=== PATIENT | female | born 1990 | race African-American/Black ===

== ENCOUNTER → 2017-05-11 | Outpatient (CLI) | payer OTHER ==
--- NOTE | ~2017-05-11 | US98 ---
[facility] A Service of [facility] & [facility] RADIOLOGY TEXT RESULTS PATIENT: DEANA BOOKER LOCATION: [facility] : [birth year] UNIT #: [id number] AGE: [address]: Declan Nixon MD SEX: F ORDER DR: [id number] [facility] [address] [place], [place] [address] [id number] O MR#: [id number] Acc #: [id number] NAME: DEANA BOOKER : 1990 SEX: F STUDY DATE/TIME: 05/11/2017 15:59 UNIT: [facility] ROOM: STUDY DESCRIPTION: US Pelvic Non-OB Complete Attending Physician: Declan Nixon M.D. Ordering Physician: Declan Nixon M.D. Primary Care Physician: Declan Nixon M.D. MEDICAL IMAGING REPORT This report is preliminary unless electronic signature is present EXAM Pelvic ultrasound transabdominal and transvaginal technique 05/11/2017 INDICATION 26-year-old female with menstrual cycles 2-3 times a month. Intermittent symptoms since 2011. TECHNIQUE Sonographic imaging of the pelvis was performed transabdominally and then transvaginally for better evaluation of the adnexa and ovarian structures. We have no comparisons. FINDINGS TRANSABDOMINAL IMAGING: The uterus is not well visualized or assessed but measures about 6.6 cm long axis. Neither ovary identified. TRANSVAGINAL IMAGING: The uterus measures about 6.7 x 4.0 x 4.7 cm. Endometrial stripe measures 6 mm. Small amount of physiologic free fluid in the pelvic cul-de-sac. Both ovaries demonstrate good flow at the time of the study. The right measures up to 3.4 cm and the left up to 4 cm. They otherwise appear unremarkable. No adnexal mass identified or drainable fluid collection present. IMPRESSION Negative pelvic ultrasound. Dictated by... Ney Morales M.D. THIS IS AN ELECTRONICALLY VERIFIED REPORT Ney Morales M.D. at 05/12/2017 5:21 PM MIL/jocelyn [facility] A Service of [facility] & [facility] RADIOLOGY TEXT RESULTS PATIENT: DEANA BOOKER LOCATION: [facility] : [birth year] UNIT #: [id number] AGE: [address]: Declan Nixon MD SEX: F ORDER DR: TD: 05/12/2017 12:18 JOB #: [id number] MEDICAL IMAGING REPORT Page 1 of 1 COPY
== END | disposition home or self-care (01) ==
LOC: CWCC 15:45
DX: N92.0 Excessive and frequent menstruation with regular cycle (principal)
CPT/HCPCS: 76830; 76856